=== PATIENT | male | born 2000 | race Caucasian/White ===

== ENCOUNTER → 2024-11-26 14:50 | Outpatient (CLI) | payer OTHER, SELFPAY ==
--- NOTE | 2024-11-26 14:54 | DI.US.S_ITS ---
PROCEDURE: US SCROTUM INDICATIONS: LEFT TESTICULAR PAIN TECHNIQUE: Real-time scanning was performed of the scrotum and testicles, with image documentation. Color and pulse Doppler interrogation was performed of both testicles. COMPARISON: None. FINDINGS: Right: Testicle is normal in size at 4.6 x 2.4 x 2.6 cm, and homogenous in echotexture. Microlithiasis are noted. Epididymis is normal in overall size and morphology. No hydrocele or varicoceles. Overlying scrotal skin is normal in thickness. Left: Testicle is normal in size at 3.9 x 2.3 x 2.6 cm, and homogeneous in echotexture. Microlithiasis are noted. Epididymis is normal in overall size and morphology with microcalcification. No hydrocele. Mild varicoceles. Overlying scrotal skin is normal in thickness. Doppler: Color and pulse Doppler demonstrate normal and symmetric arterial flow in both testicles. IMPRESSION: Mild left varicoceles. Otherwise, normal exam. No masses are identified. Dictated by: Valente Carrasquillo M.D. on 11/26/2024 at 16:33 Approved by: Valente Carrasquillo M.D. on 11/26/2024 at 16:35
== END ==
PROVIDERS: PCP Nurse Practitioner Family; Referring Provider Nurse Practitioner Family; Visit Provider Nurse Practitioner Family
DX: I86.1 Scrotal varices (principal); N50.812 Left testicular pain
CPT/HCPCS: 76870; 93976